=== PATIENT | female | born 1990 | race Caucasian/White ===

== ENCOUNTER 2016-12-12 18:23 | Emergency (ER) | payer OTHER ==
--- NOTE | 2016-12-12 20:32 | EDDOCDS ---
Physician Documentation [facility] Name: Neil Shultz Age: 26 yrs Sex: Female : 1990 Arrival Date: 12/12/2016 Time: 18:23 Bed TR1 Private MD: NO PRIMARY PHYSICIAN, . Disposition: 12/12/16 20:18 Discharged to Home/Self Care. Impression: Sprain of interphalangeal joint of left index finger. - Condition is Stable. - Discharge Instructions: Finger Sprain, Jammed Finger. - Medication Reconciliation, Local Pharmacy Hours form. - Follow up: Rashid Spear; When: Call to arrange an appointment; Reason: Recheck today's complaints, Continuance of care. - Problem is new. - Symptoms are unchanged. Historical: - Allergies: No known drug Allergies; - Home Meds: 1. amoxicillin 500 mg Oral cap 1 cap every 12 hours (Last dose: 12/11/2016) - PMHx: none; - PSHx: none; - Social history: Smoking status: Patient states former smoker of tobacco. No barriers to communication noted, The patient speaks fluent Zambian, Speaks appropriately for age. - Family history: Not pertinent. - : The pt / caregiver states he / she is not on anticoagulants. Home medication list is obtained from the patient. - Exposure Risk Screening:: None identified. 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 5 in. (165.10 cm) (R); Pain 5/10; 20:29 BP 131 / 79; Pulse 71; Resp 16; Temp 98.2(O); Pulse Ox 99% on R/A; jo3 18:25 Body Mass Index 32.12 (87.54 kg, 165.10 cm) gr2 MDM: 18:41 Fingers Ordered. EDMS 19:51 [facility] Payment Agreement was scanned into [employer] and attached to record. gb 20:07 Financial registration complete. [email or web address] Signatures: Dispatcher [employer] EDMS Ayla Ho, Reg Reg gb Charlene Russell,RN RN lottie3 Mariano Grey PA PA Aruna Hedrick, Reg Reg ks16 The chart was reviewed and I authenticate all verbal orders and agree with the evaluation and treatment provided.Attachments: 19:51 [facility] Payment Agreement gb MTDD
--- NOTE | 2016-12-12 20:32 | EDDOCDS ---
Nurse's Notes [facility] Name: Neil Shultz Age: 26 yrs Sex: Female : 1990 Arrival Date: 12/12/2016 Time: 18:23 Bed TR1 Private MD: NO PRIMARY PHYSICIAN, . Diagnosis: Sprain of interphalangeal joint of left index finger Presentation: 12/12 18:35 Presenting complaint: Patient states: Fell last night, injuring left index finger. jo3 Swelling noted. Adult Sepsis Screening: The patient does not have new or worsening altered mentation. Patient's respiratory rate is less than 22. Systolic blood pressure is greater than 100. Patient has a qSOFA score of 0- Negative Sepsis Screen. Suicide/Homicide risk assessment- the patient denies having any suicidal and/or homicidal ideations and does not present with any other emotional, behavioral or mental health complaints. Status: Patient is not a service now developer or dependent. Transition of care: patient was not received from another setting of care. 18:35 Acuity: GELY Level 4 jo3 18:35 Method Of Arrival: Walkin/Carried/Asstd jo3 Triage Assessment: 18:36 General: Appears in no apparent distress, Behavior is appropriate for age, cooperative. jo3 Pain: Pain currently is 4 out of 10 on a pain scale. HIV screening NA for this visit Offered previously. Neurological: No deficits noted. Respiratory: No deficits noted. Airway is patent Respiratory effort is even, unlabored, Parent/caregiver reports the patient having. Derm: Skin is pink, warm & dry. swelling to left index finger. 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 amoxicillin 500 mg Oral cap 1 cap every 12 hours (Last dose: 12/11/2016) - PMHx: none; - PSHx: none; - Social history: Smoking status: Patient states former smoker of tobacco. No barriers to communication noted, The patient speaks fluent Moroccan, Speaks appropriately for age. - Family history: Not pertinent. - : The pt / caregiver states he / she is not on anticoagulants. Home medication list is obtained from the patient. - Exposure Risk Screening:: None identified. Screenin:29 Screening information is obtained from the patient. Fall risk: No risks identified. jo3 Assistance ADL's: requires no assistance with activities of daily living. Abuse/DV Screen: The patient / caregiver reports he/she is: not in a situation that causes fear, pain or injury. Nutritional screening: No deficits noted. Advance Directives: Currently, there is no health care proxy. There is no active DNR order. home support is adequate. Assessment: 20:29 General: Appears in no apparent distress, comfortable, Behavior is appropriate for age, jo3 cooperative. Neurological: No deficits noted. Level of Consciousness is awake, alert, Oriented to person, place, time. Respiratory: Airway is patent Respiratory effort is even, unlabored. Vital Signs: 18:25 BP 132 / 74; Pulse 99; Resp 18 S; Temp 97.8(O); Pulse Ox 96% on R/A; Weight 87.54 kg gr2 (R); Height 5 ft. 5 in. (165.10 cm) (R); Pain 5/10; 20:29 BP 131 / 79; Pulse 71; Resp 16; Temp 98.2(O); Pulse Ox 99% on R/A; jo3 18:25 Body Mass Index 32.12 (87.54 kg, 165.10 cm) gr2 Vitals: 18:25 Log In Time: December 12, 2016 at 18:25. gr2 ED Course: 18:25 Patient visited by Dorcas Washington. gr2 18:25 NO PRIMARY PHYSICIAN, . is Private Physician. gr2 18:25 Patient moved to Waiting gr2 18:29 Patient visited by Dorcas Washington. gr2 18:29 Patient moved to Pre RCE gr2 18:36 Triage Initiated jo3 18:38 Patient visited by Charlene Russell RN. jo3 19:36 Patient moved to Triage 2 jo3 19:47 Mariano Grey PA is PHCP. mo1 19:47 Murali Castaneda DO is Attending Physician. mo1 19:51 [facility] Payment Agreement was scanned into [employer] and attached to record. gb 20:06 Patient visited by Mariano Grey PA. mo1 20:18 Rashid Spear is Referral Physician. mo1 20:29 The patient / caregiver is instructed regarding the plan of care and ED course. jo3 20:29 No IV's were initiated during this patient's visit. No procedures done that require jo3 assistance. 20:30 Patient moved to TR1 jf3 Order Results: There are currently no results for this order. Outcome: 20:18 Discharge ordered by Provider. mo1 20:29 Discharge Assessment: Patient awake, alert and oriented x 3. No cognitive and/or jo3 functional deficits noted. Patient verbalized understanding of disposition instructions. patient administered narcotics - no. The following High Risk Discharge criteria are identified: None. Discharged to home ambulatory. Condition: stable. Discharge instructions given to patient, Instructed on discharge instructions, follow up and referral plans. Demonstrated understanding of instructions, Pt was receptive of discharge instructions/ teaching. No special radiology studies were completed. Property sent home with patient. 20:31 Patient left the ED. jo3 Signatures: Ayla Ho, Reg Reg Charlene Peterson,RN RN jo3 Dorcas Washington gr2 Mariano Grey PA PA mo1 Aniceto Putnam,RN RN jf3 MTDD
--- NOTE | 2016-12-13 01:13 | REP ---
Clinical: Trauma. Technique: AP, lateral, bilateral oblique views left second digit . Findings: The osseous structures and joint spaces are intact and normal. There is no evidence for acute fracture or dislocation. Surrounding soft tissues are unremarkable. No subcutaneous emphysema or radiodense foreign body. Impression: Normal examination. No acute fracture or dislocation. Signed by Richard Upton MD 12/13/2016 01:05 A
--- NOTE | 2016-12-14 21:33 | EDDOCDS ---
Physician Documentation [facility] Name: Neil Shultz Age: 26 yrs Sex: Female : 1990 Arrival Date: 12/12/2016 Time: 18:23 Bed TR1 Private MD: NO PRIMARY PHYSICIAN, . Disposition: 12/12/16 20:18 Discharged to Home/Self Care. Impression: Sprain of interphalangeal joint of left index finger. - Condition is Stable. - Discharge Instructions: Finger Sprain, Jammed Finger. - Medication Reconciliation, Local Pharmacy Hours form. - Follow up: Rashid Spear; When: Call to arrange an appointment; Reason: Recheck today's complaints, Continuance of care. - Problem is new. - Symptoms are unchanged. Historical: - Allergies: No known drug Allergies; - Home Meds: 1. amoxicillin 500 mg Oral cap 1 cap every 12 hours (Last dose: 12/11/2016) - PMHx: none; - PSHx: none; - Social history: Smoking status: Patient states former smoker of tobacco. No barriers to communication noted, The patient speaks fluent Cymro, Speaks appropriately for age. - Family history: Not pertinent. - : The pt / caregiver states he / she is not on anticoagulants. Home medication list is obtained from the patient. - Exposure Risk Screening:: None identified. 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 5 in. (165.10 cm) (R); Pain 5/10; 20:29 BP 131 / 79; Pulse 71; Resp 16; Temp 98.2(O); Pulse Ox 99% on R/A; jo3 18:25 Body Mass Index 32.12 (87.54 kg, 165.10 cm) gr2 MDM: 18:41 Fingers Ordered. EDMS 19:51 [facility] Payment Agreement was scanned into [employer] and attached to record. gb 20:07 Financial registration complete. ks16 22:26 T-Sheet-- Draft Copy was scanned into [employer] and attached to record. klr Signatures: Dispatcher [employer] Ayla Parks, Reg Reg gb Charlene Russell RN RN lottie3 Mariano Grey, Aruna Linares, Reg Reg ks16 Ekta Moreira klr The chart was reviewed and I authenticate all verbal orders and agree with the evaluation and treatment provided.Attachments: 19:51 [facility] Payment Agreement gb 22:26 T-Sheet-- Draft Copy klr Chart Complete MTDD
--- NOTE | 2016-12-14 21:33 | EDDOCDS ---
Nurse's Notes [facility] Name: Neil Shultz Age: 26 yrs Sex: Female : 1990 Arrival Date: 12/12/2016 Time: 18:23 Bed TR1 Private MD: NO PRIMARY PHYSICIAN, . Diagnosis: Sprain of interphalangeal joint of left index finger Presentation: 12/12 18:35 Presenting complaint: Patient states: Fell last night, injuring left index finger. jo3 Swelling noted. Adult Sepsis Screening: The patient does not have new or worsening altered mentation. Patient's respiratory rate is less than 22. Systolic blood pressure is greater than 100. Patient has a qSOFA score of 0- Negative Sepsis Screen. Suicide/Homicide risk assessment- the patient denies having any suicidal and/or homicidal ideations and does not present with any other emotional, behavioral or mental health complaints. Status: Patient is not a technical service representative or dependent. Transition of care: patient was not received from another setting of care. 18:35 Acuity: GELY Level 4 jo3 18:35 Method Of Arrival: Walkin/Carried/Asstd jo3 Triage Assessment: 18:36 General: Appears in no apparent distress, Behavior is appropriate for age, cooperative. jo3 Pain: Pain currently is 4 out of 10 on a pain scale. HIV screening NA for this visit Offered previously. Neurological: No deficits noted. Respiratory: No deficits noted. Airway is patent Respiratory effort is even, unlabored, Parent/caregiver reports the patient having. Derm: Skin is pink, warm & dry. swelling to left index finger. 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 amoxicillin 500 mg Oral cap 1 cap every 12 hours (Last dose: 12/11/2016) - PMHx: none; - PSHx: none; - Social history: Smoking status: Patient states former smoker of tobacco. No barriers to communication noted, The patient speaks fluent Romanian, Speaks appropriately for age. - Family history: Not pertinent. - : The pt / caregiver states he / she is not on anticoagulants. Home medication list is obtained from the patient. - Exposure Risk Screening:: None identified. Screenin:29 Screening information is obtained from the patient. Fall risk: No risks identified. jo3 Assistance ADL's: requires no assistance with activities of daily living. Abuse/DV Screen: The patient / caregiver reports he/she is: not in a situation that causes fear, pain or injury. Nutritional screening: No deficits noted. Advance Directives: Currently, there is no health care proxy. There is no active DNR order. home support is adequate. Assessment: 20:29 General: Appears in no apparent distress, comfortable, Behavior is appropriate for age, jo3 cooperative. Neurological: No deficits noted. Level of Consciousness is awake, alert, Oriented to person, place, time. Respiratory: Airway is patent Respiratory effort is even, unlabored. Vital Signs: 18:25 BP 132 / 74; Pulse 99; Resp 18 S; Temp 97.8(O); Pulse Ox 96% on R/A; Weight 87.54 kg gr2 (R); Height 5 ft. 5 in. (165.10 cm) (R); Pain 5/10; 20:29 BP 131 / 79; Pulse 71; Resp 16; Temp 98.2(O); Pulse Ox 99% on R/A; jo3 18:25 Body Mass Index 32.12 (87.54 kg, 165.10 cm) gr2 Vitals: 18:25 Log In Time: December 12, 2016 at 18:25. gr2 ED Course: 18:25 Patient visited by Dorcas Washington. gr2 18:25 NO PRIMARY PHYSICIAN, . is Private Physician. gr2 18:25 Patient moved to Waiting gr2 18:29 Patient visited by Dorcas Washington. gr2 18:29 Patient moved to Pre RCE gr2 18:36 Triage Initiated jo3 18:38 Patient visited by Charlene Russell RN. jo3 19:36 Patient moved to Triage 2 jo3 19:47 Mariano Grey PA is PHCP. mo1 19:47 Murali Castaneda DO is Attending Physician. mo1 19:51 [facility] Payment Agreement was scanned into [employer] and attached to record. gb 20:06 Patient visited by Mariano Grey PA. mo1 20:18 Rashid Spear is Referral Physician. mo1 20:29 The patient / caregiver is instructed regarding the plan of care and ED course. jo3 20:29 No IV's were initiated during this patient's visit. No procedures done that require jo3 assistance. 20:30 Patient moved to TR1 3 22:26 T-Sheet-- Draft Copy was scanned into [employer] and attached to record. klr 12/13 01:19 Fingers Returned. EDMS Order Results: Radiology Order: Fingers Test: Fingers REASON FOR EXAMINATION: Trauma; Clinical: Trauma.; ; Technique: AP, lateral, bilateral oblique views left second digit .; ; Findings: The osseous structures and joint spaces are intact and normal. There; is no evidence for acute fracture or dislocation. Surrounding soft tissues are; unremarkable. No subcutaneous emphysema or radiodense foreign body.; ; Impression:; Normal examination. No acute fracture or dislocation.; ; ; Signed by; Richard Upton MD 12/13/2016 01:05 A; Outcome: 12/12 20:18 Discharge ordered by Provider. mo1 20:29 Discharge Assessment: Patient awake, alert and oriented x 3. No cognitive and/or jo3 functional deficits noted. Patient verbalized understanding of disposition instructions. patient administered narcotics - no. The following High Risk Discharge criteria are identified: None. Discharged to home ambulatory. Condition: stable. Discharge instructions given to patient, Instructed on discharge instructions, follow up and referral plans. Demonstrated understanding of instructions, Pt was receptive of discharge instructions/ teaching. No special radiology studies were completed. Property sent home with patient. 20:31 Patient left the ED. jo3 Signatures: Dispatcher [employer] EDIA Ayla Ho Reg Reg gb Helmerci, Jennifer, RN RN jo3 Dorcas Washington 2 Mariano Grey PA PA mo1 Aniceto Putnam,VALERIE RN jf3 Ekta Moreira klr Chart Complete MTDD
--- NOTE | 2016-12-14 21:33 | EDDOCDS ---
Physician Documentation [facility] Name: Neil Shultz Age: 26 yrs Sex: Female : 1990 Arrival Date: 12/12/2016 Time: 18:23 Bed TR1 Private MD: NO PRIMARY PHYSICIAN, . Disposition: 12/12/16 20:18 Discharged to Home/Self Care. Impression: Sprain of interphalangeal joint of left index finger. - Condition is Stable. - Discharge Instructions: Finger Sprain, Jammed Finger. - Medication Reconciliation, Local Pharmacy Hours form. - Follow up: Rashid Spear; When: Call to arrange an appointment; Reason: Recheck today's complaints, Continuance of care. - Problem is new. - Symptoms are unchanged. Historical: - Allergies: No known drug Allergies; - Home Meds: 1. amoxicillin 500 mg Oral cap 1 cap every 12 hours (Last dose: 12/11/2016) - PMHx: none; - PSHx: none; - Social history: Smoking status: Patient states former smoker of tobacco. No barriers to communication noted, The patient speaks fluent Kosovan, Speaks appropriately for age. - Family history: Not pertinent. - : The pt / caregiver states he / she is not on anticoagulants. Home medication list is obtained from the patient. - Exposure Risk Screening:: None identified. 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 5 in. (165.10 cm) (R); Pain 5/10; 20:29 BP 131 / 79; Pulse 71; Resp 16; Temp 98.2(O); Pulse Ox 99% on R/A; jo3 18:25 Body Mass Index 32.12 (87.54 kg, 165.10 cm) gr2 MDM: 18:41 Fingers Ordered. EDMS 19:51 [facility] Payment Agreement was scanned into [employer] and attached to record. gb 20:07 Financial registration complete. ks16 22:26 T-Sheet-- Draft Copy was scanned into [employer] and attached to record. klr Signatures: Dispatcher [employer] Ayla Parks, Reg Reg gb Charlene Russell RN RN lottie3 Mariano Grey, Aruna Linares, Reg Reg ks16 Ekta Moreira klr The chart was reviewed and I authenticate all verbal orders and agree with the evaluation and treatment provided.Attachments: 19:51 [facility] Payment Agreement gb 22:26 T-Sheet-- Draft Copy klr Chart Complete MTDD
== END 2016-12-12 20:31 | disposition home or self-care (01) ==
LOC: M ED 18:23
DX: S63.631A Sprain of interphalangeal joint of left index finger, initial encounter (principal); Z87.891 Personal history of nicotine dependence; W01.198A Fall on same level from slipping, tripping and stumbling with subsequent striking against other object, initial encounter; Y92.89 Other specified places as the place of occurrence of the external cause; Y93.89 Activity, other specified; Y99.9 Unspecified external cause status

== ENCOUNTER → 2017-01-12 | Outpatient (CLI) | payer OTHER ==
--- NOTE | 2017-01-12 12:44 | REP ---
Clinical: thoracic pain. Technique: AP, lateral, and swimmers views. Findings: Alignment and kyphosis is maintained. Vertebral bodies intact. No acute fracture / compression injury or subluxation. No degenerative changes. Paravertebral soft tissues are normal. Impression: Normal thoracic spine series. Signed by Richard Upton MD 01/12/2017 12:35 P
--- NOTE | 2017-01-12 12:44 | REP ---
Clinical: Pain. Comparison: 12/09/2010 . Technique: AP, lateral, bilateral oblique, and coned-down views. Findings: Alignment and lordosis is maintained. The vertebral bodies including transverse process and spinous processes are intact and normal. There is no evidence for acute fracture / compression injury or subluxation. No evidence for spondylolysis or spondylolisthesis. No significant degenerative change is noted. Impression: Normal lumbosacral spine radiograph series. Signed by Richard Upton MD 01/12/2017 12:36 P
--- NOTE | 2017-01-12 12:46 | REP ---
Clinical: Pain Technique: AP, lateral, bilateral oblique and sunrise views right and left knee. Findings: The osseous structures and joint spaces are intact and normal. There is no evidence for acute fracture or dislocation. No joint effusion is appreciated. Surrounding soft tissues are unremarkable. No subcutaneous emphysema or radiodense foreign body. Impression: Normal examination. No acute fracture or dislocation. Signed by Richard Upton MD 01/12/2017 12:37 P
[2017-01-12 17:23] LABS: ALBUMIN 4.2 GM/DL (3.2-5.2); ALBUMIN/GLOBULIN RATIO 1.35 (1.00-1.93); ALKALINE PHOSPHATASE 71 U/L (45-117); ALT/SGPT 14 U/L (12-78); ANION GAP 9 MEQ/L (8-16); AST/SGOT 13 U/L (15-37); BLOOD UREA NITROGEN 14 MG/DL (7-18); CALCIUM LEVEL 8.9 MG/DL (8.5-10.1); CARBON DIOXIDE LEVEL 26 MEQ/L (21-32); CHLORIDE LEVEL 106 MEQ/L (98-107); CHOLESTEROL LEVEL 156 MG/DL (<200); CREATININE FOR GFR 0.68 MG/DL (0.55-1.02); GLOMERULAR FILTRATION RATE > 60.0 (>60); GLUCOSE, FASTING 80 MG/DL (70-105); POTASSIUM SERUM 3.9 MEQ/L (3.5-5.1); SODIUM LEVEL 141 MEQ/L (136-145); TOTAL PROTEIN 7.3 GM/DL (6.4-8.2); TRIGLYCERIDES LEVEL 36 MG/DL (<150)
== END ==
LOC: M WUC 11:02
PROVIDERS: ATTEND Nurse Practitioner Family
DX: F41.8 Other specified anxiety disorders (principal); M25.569 Pain in unspecified knee; M54.5 Low back pain

== ENCOUNTER → 2017-02-16 | Outpatient (REF) | payer OTHER ==
[2017-02-16 14:15] LABS: TOTAL PROTEIN 7.2 GM/DL (6.4-8.2)
[2017-02-16 14:24] LABS: VITAMIN B12 LEVEL 446 PG/ML (247-911)
[2017-02-16 14:25] LABS: FOLATE 19.2 NG/ML (>5.4)
[2017-02-17 10:16] LABS: ALBUMIN 4.24 GM/DL (3.29-5.55); ALBUMIN % 58.9 % (55.8-66.1); GAMMA GLOBULIN % 14.5 % (11.1-18.8)
[2017-02-19 00:06] LABS: SJOGREN'S ANTI SS-A 0.2 AI (0.0-0.9); SJOGREN'S ANTI SS-B <0.2 AI (0.0-0.9)
== END ==
LOC: M LABNEURO 13:16
PROVIDERS: ATTEND Psychiatry & Neurology Neurology
DX: G58.9 Mononeuropathy, unspecified (principal); M12.89 Other specific arthropathies, not elsewhere classified, multiple sites

== ENCOUNTER 2017-06-11 11:46 | Emergency (ER) | payer OTHER ==
[~2017-06-11] VITALS: Ht 167.6 cm; Wt 82.4 kg
[2017-06-11] MEDS ORDERED: PYRI1TAB5 PO (13:12)
[2017-06-11] MEDS ORDERED: MACR100C43 PO (13:12)
[2017-06-11 13:24] VITALS: BP 105/57
== END 2017-06-11 13:26 | disposition home or self-care (01) ==
LOC: M ED 11:46
DX: N39.0 Urinary tract infection, site not specified (principal); R31.9 Hematuria, unspecified

== ENCOUNTER → 2017-07-18 | Outpatient (REF) | payer OTHER ==
[~2017-07-18] MED LIST: MACR100C43 PO; PYRI1TAB5 PO
[2017-07-18 19:02] LABS: ALBUMIN 3.7 GM/DL (3.2-5.2); ALBUMIN/GLOBULIN RATIO 1.19 (1.00-1.93); ALKALINE PHOSPHATASE 61 U/L (45-117); ALT/SGPT 20 U/L (12-78); ANION GAP 10 MEQ/L (8-16); AST/SGOT 15 U/L (15-37); BILIRUBIN,TOTAL 0.6 MG/DL (0.2-1.0); BLOOD UREA NITROGEN 16 MG/DL (7-18); CALCIUM LEVEL 8.7 MG/DL (8.5-10.1); CARBON DIOXIDE LEVEL 25 MEQ/L (21-32); CHLORIDE LEVEL 108 MEQ/L (98-107); CREATININE FOR GFR 0.64 MG/DL (0.55-1.02); GLOMERULAR FILTRATION RATE > 60.0 (>60); GLUCOSE, FASTING 94 MG/DL (70-105); HCG, SERUM QUANTITATIVE < 1.0 MIU/ML; POTASSIUM SERUM 4.2 MEQ/L (3.5-5.1); SODIUM LEVEL 143 MEQ/L (136-145); TOTAL PROTEIN 6.8 GM/DL (6.4-8.2)
[2017-07-18 19:43] LABS: BASO % 0.5 % (0.0-1.0); EOS # 0.2 K/mm3 (0.0-0.50); EOS % 2.1 % (0.0-3.0); LARGE UNSTAINED CELL # 0.1 K/mm3 (0.0-0.4); LARGE UNSTAINED CELL % 1.4 % (0.0-4.0); LYMPH # 1.9 K/mm3 (1.5-6.5); MEAN CORPUSCULAR HEMOGLOBIN 30.2 pg (27.0-33.0); MEAN CORPUSCULAR HGB CONC 32.5 g/dl (32.0-36.5); MEAN CORPUSCULAR VOLUME 92.9 fl (80.0-96.0); MONO # 0.5 K/mm3 (0.0-0.8); MONO % 6.5 % (0.0-5.0); NEUTROPHILS # 4.7 K/mm3 (1.8-7.7); NEUTROPHILS % 64.5 % (36.0-66.0); PLATELET COUNT, AUTOMATED 263 k/mm3 (150-450); RED CELL DISTRIBUTION WIDTH 12.3 % (11.5-14.5); WHITE BLOOD COUNT 7.2 K/mm3 (4.0-10.0)
[2017-07-18 20:37] LABS: ERYTHROCYTE SEDIMENTATION RATE 6 mm/hr (0-20)
[2017-07-21 00:06] LABS: Lyme Disease IgG/IgM Antibodie <0.91 ISR (0.00-0.90); Lyme Disease IgM Ab Quantitati <0.80 index (0.00-0.79)
== END ==
LOC: M LABDRAW1 16:53
PROVIDERS: ATTEND Internal Medicine Rheumatology
DX: M45.0 Ankylosing spondylitis of multiple sites in spine (principal); Z79.899 Other long term (current) drug therapy; O02.81 Inappropriate change in quantitative human chorionic gonadotropin (hCG) in early pregnancy

== ENCOUNTER 2018-07-04 18:04 | Emergency (ER) | payer OTHER ==
[2018-07-04 20:36] LABS: CONTROL LINE UCG INT CTR LINE PRESENT; URINE PREG TEST NEGATIVE (NEGATIVE)
[2018-07-04] MEDS ORDERED: LIDOCAINE 1% MDV 20ML VIAL As Ordered (20:41)
[2018-07-04] MEDS: AZITHROMYCIN 250 MG TAB PO (20:46)
[2018-07-04] MEDS: cefTRIAXone SOD 250 MG VIAL (J0696) IM (20:46)
[2018-07-04 21:03] LABS: KETONE, URINE AUTO RFX NEGATIVE (NEGATIVE); LEUKOCYTE ESTERASE UR AUTO RFX TRACE (NEGATIVE); MUCUS, URINE RFX SMALL (NEGATIVE); NITRITE, URINE AUTO RFX NEGATIVE (NEGATIVE); RBC, URINE AUTO RFX 2 /HPF (0-3); SPECIFIC GRAVITY UR AUTO RFX 1.006 (1.002-1.035); SQUAM EPITHELIAL CELL UR AURFX 1 /HPF (0-6); WBC, URINE AUTO RFX 2 /HPF (0-3)
[2018-07-04 22:03] LABS: CHLAMYDIA DNA AMPLIFICATION NEGATIVE (NEGATIVE); GC DNA AMPLIFICATION NEGATIVE (NEGATIVE)
== END 2018-07-04 21:27 | disposition home or self-care (01) ==
LOC: M ED 18:04
DX: Z20.2 Contact with and (suspected) exposure to infections with a predominantly sexual mode of transmission (principal); N89.8 Other specified noninflammatory disorders of vagina; Z79.3 Long term (current) use of hormonal contraceptives; F17.210 Nicotine dependence, cigarettes, uncomplicated
CPT/HCPCS: J0696

== ENCOUNTER 2020-01-26 16:01 | Emergency (ER) | payer OTHER, SELFPAY ==
[~2020-01-26] VITALS: Ht 167.6 cm; Wt 88.2 kg
[2020-01-26 17:14] LABS: INFLUENZA A AMPLIFICATION NEGATIVE (NEGATIVE); INFLUENZA B AMPLIFICATION POSITIVE (NEGATIVE)
[2020-01-26] MEDS ORDERED: IBUPROFEN 600 MG TAB PO ONE (17:30)
[2020-01-26] MEDS ORDERED: ACETAMINOPHEN 500 MG TAB PO ONE (17:30)
[2020-01-26 17:31] VITALS: BP 118/78
== END 2020-01-26 17:35 | disposition home or self-care (01) ==
LOC: M ED 16:01
DX: J10.89 Influenza due to other identified influenza virus with other manifestations (principal); F17.210 Nicotine dependence, cigarettes, uncomplicated

== ENCOUNTER → 2020-09-19 | Outpatient (REF) | payer OTHER | LOC: M LAB REF 15:45 | PROVIDERS: ATTEND Nurse Practitioner Family | DX: R30.0 Dysuria (principal) ==

== ENCOUNTER 2020-10-19 16:29 | Emergency (ER) | payer OTHER ==
[~2020-10-19] VITALS: Ht 165.1 cm; Wt 96.0 kg
[2020-10-19] MEDS ORDERED: FLAG500T PO (18:11)
[2020-10-19 18:15] VITALS: BP 125/69
[2020-10-19] MEDS ORDERED: metroNIDAZOLE (FLAGYL) 500MG TABLET PO ONE (18:15)
[2020-10-19 18:26] LABS: CHLAMYDIA DNA AMPLIFICATION NEGATIVE (NEGATIVE); GC DNA AMPLIFICATION NEGATIVE (NEGATIVE)
[2020-10-19 19:12] LABS: CHLAMYDIA DNA AMPLIFICATION NEGATIVE (NEGATIVE); GC DNA AMPLIFICATION NEGATIVE (NEGATIVE)
== END 2020-10-19 18:17 | disposition home or self-care (01) ==
LOC: M ED 16:29
DX: N76.0 Acute vaginitis (principal); F17.210 Nicotine dependence, cigarettes, uncomplicated

== ENCOUNTER 2021-02-09 07:51 | Emergency (ER) | payer OTHER ==
[~2021-02-09] VITALS: Ht 165.1 cm; Wt 91.9 kg
[~2021-02-09 07:51] MED LIST changes: +FLAG500T PO
[2021-02-09] MEDS ORDERED: ISIB1TAB (08:00)
[2021-02-09 08:49] LABS: HEMATOCRIT 48.8 % (36.0-47.0); HEMOGLOBIN 16.1 g/dl (12.0-15.5); MEAN CORPUSCULAR HEMOGLOBIN 30.1 pg (27.0-33.0); MEAN CORPUSCULAR VOLUME 91.4 fl (80.0-96.0); PLATELET COUNT, AUTOMATED 244 10^3/uL (150-450); RED BLOOD COUNT 5.34 10^6/uL (4.00-5.40); WHITE BLOOD COUNT 5.1 10^3/uL (4.0-10.0)
[2021-02-09 09:13] LABS: ATYPICAL LYMPH 3 % (0-5); BASOPHILS 1 % (0-1); EOSINOPHILS 2 % (0-3); LYMPHOCYTES 21 % (16-44); MONOCYTES 13 % (0-5); NEUTROPHILS 60 % (28-66); PLATELET ESTIMATE NORMAL (NORMAL)
[2021-02-09 09:19] LABS: ALBUMIN 3.9 GM/DL (3.2-5.2); ALT/SGPT 107 U/L (12-78); BILIRUBIN,DIRECT 0.1 MG/DL (0.0-0.2); BILIRUBIN,TOTAL 0.3 MG/DL (0.2-1.0); BLOOD UREA NITROGEN 13 MG/DL (7-18); CARBON DIOXIDE LEVEL 28 MEQ/L (21-32); CHLORIDE LEVEL 109 MEQ/L (98-107); CREATININE FOR GFR 0.71 MG/DL (0.55-1.30); GLOMERULAR FILTRATION RATE > 60.0 (>60); GLUCOSE, FASTING 88 MG/DL (70-100); LIPASE 63 U/L (73-393); POTASSIUM SERUM 4.4 MEQ/L (3.5-5.1); SODIUM LEVEL 139 MEQ/L (136-145); TOTAL PROTEIN 7.7 GM/DL (6.4-8.2)
[2021-02-09 09:20] LABS: HCG, SERUM QUALITATIVE NEGATIVE (NEGATIVE)
[2021-02-09] MEDS ORDERED: NS 1,000 ML IV ONE (09:20)
[2021-02-09] MEDS ORDERED: VANC125C3 PO (10:25)
[2021-02-09 11:12] VITALS: BP 129/66
== END 2021-02-09 11:17 | disposition home or self-care (01) ==
LOC: M ED 07:51
DX: R19.7 Diarrhea, unspecified (principal); B96.89 Other specified bacterial agents as the cause of diseases classified elsewhere; F17.210 Nicotine dependence, cigarettes, uncomplicated; Z79.3 Long term (current) use of hormonal contraceptives

== ENCOUNTER 2021-12-02 17:34 | Emergency (ER) | payer OTHER ==
[~2021-12-02] VITALS: Ht 165.1 cm; Wt 90.9 kg
[~2021-12-02 17:34] MED LIST changes: +ISIB1TAB; +VANC125C3 PO
[2021-12-02] MEDS ORDERED: AUGM875T28 PO (21:44)
[2021-12-02 21:55] VITALS: BP 130/90
== END 2021-12-02 21:56 | disposition home or self-care (01) ==
LOC: M ED 17:34
DX: L03.113 Cellulitis of right upper limb (principal); Z79.3 Long term (current) use of hormonal contraceptives; F17.210 Nicotine dependence, cigarettes, uncomplicated

== ENCOUNTER → 2021-12-28 | Outpatient (CLI) | payer OTHER ==
[~2021-12-28] MED LIST changes: +AUGM875T28 PO
== END ==
LOC: M LABSMTC 11:58
PROVIDERS: ATTEND Anesthesiology
DX: Z01.818 Encounter for other preprocedural examination (principal); Z11.52 Encounter for screening for COVID-19

== ENCOUNTER → 2021-12-28 | Outpatient (CLI) | payer OTHER ==
[2021-12-28 16:37] LABS: BASO # 0.1 10^3/uL (0.0-0.2); BASO % 0.5 % (0.0-1.0); EOS # 0.2 10^3/uL (0.0-0.5); EOS % 1.6 % (0.0-3.0); HEMATOCRIT 42.1 % (36.0-47.0); LYMPH # 2.5 10^3/uL (1.5-5.0); LYMPH % 27.2 % (24.0-44.0); MEAN CORPUSCULAR HEMOGLOBIN 29.7 pg (27.0-33.0); MEAN CORPUSCULAR HGB CONC 33.3 g/dl (32.0-36.5); MEAN CORPUSCULAR VOLUME 89.2 fl (80.0-96.0); MONO # 0.8 10^3/uL (0.0-0.8); MONO % 8.4 % (2.0-8.0); NEUTROPHILS # 5.8 10^3/uL (1.5-8.5); NEUTROPHILS % 62.1 % (36.0-66.0); PLATELET COUNT, AUTOMATED 222 10^3/uL (150-450); RED BLOOD COUNT 4.72 10^6/uL (4.00-5.40); WHITE BLOOD COUNT 9.3 10^3/uL (4.0-10.0)
[2021-12-28 17:02] LABS: BLOOD UREA NITROGEN 8 MG/DL (7-18); CARBON DIOXIDE LEVEL 28 MEQ/L (21-32); CHLORIDE LEVEL 107 MEQ/L (98-107); CREATININE FOR GFR 0.61 MG/DL (0.55-1.30); GLOMERULAR FILTRATION RATE > 60.0 (>60); GLUCOSE, FASTING 116 MG/DL (70-100); POTASSIUM SERUM 4.1 MEQ/L (3.5-5.1); SODIUM LEVEL 141 MEQ/L (136-145)
[2021-12-28 17:14] LABS: HCG, SERUM QUALITATIVE NEGATIVE (NEGATIVE)
== END ==
LOC: M LAB 12-24 16:32
PROVIDERS: ATTEND Podiatrist
DX: Z01.812 Encounter for preprocedural laboratory examination (principal)

== ENCOUNTER 2022-01-01 07:17 | Day surgery (SDC) | payer OTHER ==
[~2022-01-01] VITALS: Ht 165.1 cm; Wt 94.8 kg
[~2022-01-01 07:17] MED LIST changes: +BUPIVACAINE HCL 0.5% 30 ML VIAL As Ordered ONE; +GENTAMICIN SULF 80MG/2ML VIAL As Ordered ONE; +LIDOCAINE 1% MDV 20ML VIAL SQ PRN; +LIDOCAINE 2% MDV 20ML VIAL As Ordered ONE; +LR 1,000 ML IV ONE; +NEOSPORIN GU IRRIG 20 ML VIAL As Ordered ONE; +ceFAZolin SOD 2 GM in IV 1 EA IV ONE; +dexameTHASONE 4 MG/ML 1ML VIAL (J1100 PER 1MG) As Ordered ONE
[2022-01-01] MEDS ORDERED: LIDOCAINE 2% 100MG/5ML SDV (FOR ANES.) As Ordered ONE (08:14)
[2022-01-01] MEDS ORDERED: ONDANSETRON 4MG/2ML VIAL As Ordered ONE (08:14)
[2022-01-01] MEDS ORDERED: propofoL 500 MG/50 ML VIAL As Ordered ONE (08:15)
[2022-01-01] MEDS ORDERED: KETOROLAC 60MG 2ML VIAL As Ordered ONE (08:15)
[2022-01-01] MEDS ORDERED: fentaNYL 100 MCG/2 ML INJECTION As Ordered ONE (08:15)
[2022-01-01] MEDS ORDERED: MIDAZOLAM INJ 2MG/2ML VIAL (J2250 PER 1MG) As Ordered ONE (08:15)
[2022-01-01] MEDS ORDERED: dexameTHASONE 4 MG/ML 1ML VIAL (J1100 PER 1MG) As Ordered ONE (08:15)
[2022-01-01 08:32] LABS: HCG, SERUM QUALITATIVE NEGATIVE (NEGATIVE)
[2022-01-01] MEDS ORDERED: propofoL 200 MG/20 ML VIAL As Ordered ONE (10:14)
[2022-01-01] MEDS ORDERED: fentaNYL 100 MCG/2 ML INJECTION IV PRN (11:15)
[2022-01-01] MEDS ORDERED: LR 1,000 ML IV SCH (11:15)
[2022-01-01] MEDS ORDERED: PERCOCET 5MG/325MG TAB PO PRN (11:15)
[2022-01-01] MEDS ORDERED: METOCLOPRAMIDE INJ 10MG/2ML VIAL (J2765 PER 1) IV PRN (11:15)
[2022-01-01] MEDS ORDERED: ONDANSETRON 4MG/2ML VIAL IV PRN (11:15)
[2022-01-01] MEDS ORDERED: LABETALOL 100MG/20ML VIAL As Ordered ONE (11:25)
[2022-01-01 11:40] VITALS: BP 116/57
== END 2022-01-01 12:00 | disposition home or self-care (01) ==
LOC: M SDC 07:17
PROVIDERS: ATTEND Podiatrist
DX: M21.621 Bunionette of right foot (principal); M79.671 Pain in right foot; F41.9 Anxiety disorder, unspecified; M54.50 Low back pain, unspecified; E55.9 Vitamin D deficiency, unspecified; F17.218 Nicotine dependence, cigarettes, with other nicotine-induced disorders
CPT/HCPCS: 28113; 36415; 73630; 84703; 88300; 97116; C1713; J0690; J1100; J1580; J1885; J2250; J2405; J3010

== ENCOUNTER → 2023-02-10 | Outpatient (CLI) | payer OTHER ==
[~2023-02-10] MED LIST changes: -BUPIVACAINE HCL 0.5% 30 ML VIAL As Ordered ONE; -GENTAMICIN SULF 80MG/2ML VIAL As Ordered ONE; -LIDOCAINE 1% MDV 20ML VIAL SQ PRN; -LIDOCAINE 2% MDV 20ML VIAL As Ordered ONE; -LR 1,000 ML IV ONE; -NEOSPORIN GU IRRIG 20 ML VIAL As Ordered ONE; -ceFAZolin SOD 2 GM in IV 1 EA IV ONE; -dexameTHASONE 4 MG/ML 1ML VIAL (J1100 PER 1MG) As Ordered ONE
[2023-02-10 12:43] LABS: BASO # 0.1 10^3/uL (0.0-0.2); BASO % 0.6 % (0.0-1.0); EOS # 0.1 10^3/uL (0.0-0.5); EOS % 1.6 % (0.0-3.0); HEMATOCRIT 42.6 % (36.0-47.0); HEMOGLOBIN 14.1 g/dl (12.0-15.5); LYMPH # 2.7 10^3/uL (1.5-5.0); LYMPH % 33.6 % (24.0-44.0); MEAN CORPUSCULAR HEMOGLOBIN 30.9 pg (27.0-33.0); MEAN CORPUSCULAR HGB CONC 33.1 g/dl (32.0-36.5); MEAN CORPUSCULAR VOLUME 93.2 fl (80.0-96.0); MONO # 0.8 10^3/uL (0.0-0.8); MONO % 9.5 % (2.0-8.0); NEUTROPHILS # 4.3 10^3/uL (1.5-8.5); NEUTROPHILS % 54.2 % (36.0-66.0); PLATELET COUNT, AUTOMATED 290 10^3/uL (150-450); RED BLOOD COUNT 4.57 10^6/uL (4.00-5.40); WHITE BLOOD COUNT 7.9 10^3/uL (4.0-10.0)
[2023-02-10 13:12] LABS: BLOOD UREA NITROGEN 10 MG/DL (9-23); CALCIUM LEVEL 9.3 MG/DL (8.5-10.1); CARBON DIOXIDE LEVEL 28 MMOL/L (20-31); CHLORIDE LEVEL 105 MMOL/L (98-107); CREATININE FOR GFR 0.57 MG/DL (0.55-1.30); GLOMERULAR FILTRATION RATE > 60.0 (>60); GLUCOSE, FASTING 82 MG/DL (60-100); POTASSIUM SERUM 4.6 MMOL/L (3.5-5.1); SODIUM LEVEL 137 MMOL/L (136-145)
== END ==
LOC: M LAB 12:08
PROVIDERS: ATTEND Podiatrist
DX: M21.622 Bunionette of left foot (principal); M79.672 Pain in left foot

== ENCOUNTER → 2023-02-14 | Outpatient (CLI) | payer OTHER | LOC: M LABSMTC 11:42 | PROVIDERS: ATTEND Anesthesiology | DX: Z11.52 Encounter for screening for COVID-19 (principal) ==

== ENCOUNTER 2023-02-18 07:19 | Day surgery (SDC) | payer OTHER ==
[~2023-02-18] VITALS: Ht 167.6 cm; Wt 100.7 kg
[~2023-02-18 07:19] MED LIST changes: +ceFAZolin SOD 2 GM in IV 1 EA IV ONE
[2023-02-18] MEDS ORDERED: ONDANSETRON 4MG 2ML VIAL As Ordered ONE (08:34)
[2023-02-18] MEDS ORDERED: LIDOCAINE 2% 100MG/5ML SDV (FOR ANES.) As Ordered ONE (08:34)
[2023-02-18] MEDS ORDERED: propofoL 200 MG/20 ML VIAL As Ordered ONE ×2 (08:34→12:00)
[2023-02-18] MEDS ORDERED: MIDAZOLAM INJ 2MG/2ML VIAL As Ordered ONE (08:35)
[2023-02-18] MEDS ORDERED: fentaNYL 100 MCG/2 ML INJECTION As Ordered ONE (08:35)
[2023-02-18] MEDS ORDERED: LIDOCAINE 2% MDV 20ML VIAL As Ordered ONE (08:45)
[2023-02-18] MEDS ORDERED: GENTAMICIN SULF 80MG/2ML VIAL As Ordered ONE (08:45)
[2023-02-18] MEDS ORDERED: BUPIVACAINE HCL 0.5% 30ML VIAL As Ordered ONE (08:46)
[2023-02-18 14:00] VITALS: BP 111/57
== END 2023-02-18 14:43 | disposition home or self-care (01) ==
LOC: M SDC 07:19
PROVIDERS: ATTEND Podiatrist
DX: M21.622 Bunionette of left foot (principal); F32.A Depression, unspecified; F41.9 Anxiety disorder, unspecified; F17.200 Nicotine dependence, unspecified, uncomplicated
CPT/HCPCS: 28308; 73630; 88300; C1713; J0690; J1100; J1580; J2250; J2405; J3010

== ENCOUNTER → 2023-08-09 | Outpatient (CLI) | payer OTHER ==
[~2023-08-09] MED LIST changes: -ceFAZolin SOD 2 GM in IV 1 EA IV ONE
== END ==
LOC: M WHC 12:59
PROVIDERS: ATTEND Physician Assistant
DX: N64.4 Mastodynia (principal)

== ENCOUNTER → 2024-02-08 | Outpatient (CLI) | payer OTHER | LOC: M WHC 09:05 | PROVIDERS: ATTEND Physician Assistant | DX: R92.8 Other abnormal and inconclusive findings on diagnostic imaging of breast (principal) ==

== ENCOUNTER → 2024-04-06 | Outpatient (CLI) | payer OTHER ==
[2024-04-06 14:08] LABS: BASO % 0.5 % (0.0-1.0); EOS # 0.2 10^3/uL (0.0-0.5); EOS % 2.9 % (0.0-3.0); HEMATOCRIT 44.3 % (36.0-47.0); HEMOGLOBIN 14.4 g/dl (12.0-15.5); LYMPH # 2.5 10^3/uL (1.5-5.0); LYMPH % 33.8 % (24.0-44.0); MEAN CORPUSCULAR HEMOGLOBIN 29.9 pg (27.0-33.0); MEAN CORPUSCULAR HGB CONC 32.5 g/dl (32.0-36.5); MEAN CORPUSCULAR VOLUME 91.9 fl (80.0-96.0); MONO # 0.6 10^3/uL (0.0-0.8); MONO % 8.3 % (2.0-8.0); NEUTROPHILS # 4.1 10^3/uL (1.5-8.5); NEUTROPHILS % 54.2 % (36.0-66.0); PLATELET COUNT, AUTOMATED 307 10^3/uL (150-450); RED BLOOD COUNT 4.82 10^6/uL (4.00-5.40); WHITE BLOOD COUNT 7.5 10^3/uL (4.0-10.0)
[2024-04-06 14:26] LABS: HEMOGLOBIN A1c 5.2 % (4.0-6.0)
[2024-04-06 14:32] LABS: ALBUMIN 4.1 G/DL (3.2-5.2); ALKALINE PHOSPHATASE 105 U/L (46-116); ALT/SGPT 30 U/L (7.0-40); AST/SGOT 25 U/L (<34); BILIRUBIN,TOTAL 0.7 MG/DL (0.3-1.2); BLOOD UREA NITROGEN 14 MG/DL (9-23); CALCIUM LEVEL 9.5 MG/DL (8.5-10.1); CARBON DIOXIDE LEVEL 27 MMOL/L (20-31); CHLORIDE LEVEL 106 MMOL/L (98-107); CHOLESTEROL LEVEL 225 MG/DL (<200); CHOLESTEROL RISK RATIO 2.94 (<5); CREATININE FOR GFR 0.61 MG/DL (0.55-1.30); GLOMERULAR FILTRATION RATE > 60.0 (>60); GLUCOSE, FASTING 72 MG/DL (60-100); HDL CHOLESTEROL 76.3 MG/DL (>40); LDL CHOLESTEROL 137.5 MG/DL (<100); NON-HDL-C 148.7 MG/DL; POTASSIUM SERUM 4.6 MMOL/L (3.5-5.1); SODIUM LEVEL 139 MMOL/L (136-145); TOTAL PROTEIN 7.3 G/DL (5.7-8.2); TRIGLYCERIDES LEVEL 56 MG/DL (<150)
[2024-04-06 14:33] LABS: TOTAL 25(OH) VITAMIN D 29.6 NG/ML (20.0-100.0)
[2024-04-06 14:34] LABS: THYROID STIMULATING HORMONE 1.127 uIU/ML (0.55-4.78)
[2024-04-06 14:47] LABS: HCG, SERUM QUALITATIVE NEGATIVE (NEGATIVE)
== END ==
LOC: M RAD 11:03
PROVIDERS: ATTEND Nurse Practitioner Family
DX: R06.83 Snoring (principal); E66.9 Obesity, unspecified; R53.83 Other fatigue; E55.9 Vitamin D deficiency, unspecified; Z11.9 Encounter for screening for infectious and parasitic diseases, unspecified; N92.6 Irregular menstruation, unspecified

== ENCOUNTER 2024-04-15 17:04 | Emergency (ER) | payer OTHER ==
[~2024-04-15] VITALS: Ht 167.6 cm; Wt 107.8 kg
[2024-04-15 22:40] VITALS: BP 133/79; TEMP 97.9; O2SAT 100
== END 2024-04-15 22:51 | disposition home or self-care (01) ==
LOC: M ED 17:04
DX: S99.912A Unspecified injury of left ankle, initial encounter (principal); X50.1XXA Overexertion from prolonged static or awkward postures, initial encounter; Y92.9 Unspecified place or not applicable; Y93.9 Activity, unspecified; Y99.9 Unspecified external cause status

== ENCOUNTER → 2024-04-21 | Outpatient (CLI) | payer OTHER ==
[2024-04-21 13:25] LABS: HEMATOCRIT 43.4 % (36.0-47.0); HEMOGLOBIN 14.4 g/dl (12.0-15.5); MEAN CORPUSCULAR HEMOGLOBIN 30.3 pg (27.0-33.0); MEAN CORPUSCULAR HGB CONC 33.2 g/dl (32.0-36.5); MEAN CORPUSCULAR VOLUME 91.4 fl (80.0-96.0); PLATELET COUNT, AUTOMATED 299 10^3/uL (150-450); RED BLOOD COUNT 4.75 10^6/uL (4.00-5.40); WHITE BLOOD COUNT 7.5 10^3/uL (4.0-10.0)
[2024-04-21 13:37] LABS: INR 0.98; PARTIAL THROMBOPLASTIN TIME 28.1 SECONDS (24.8-34.2); PROTHROMBIN TIME 12.7 SECONDS (12.5-14.5)
[2024-04-21 13:59] LABS: THYROID STIMULATING HORMONE 0.772 uIU/ML (0.55-4.78)
[2024-04-21 14:04] LABS: PROLACTIN 6.82 NG/ML
== END ==
LOC: M LAB 12:43
PROVIDERS: ATTEND Physician Assistant
DX: N93.9 Abnormal uterine and vaginal bleeding, unspecified (principal)

== ENCOUNTER → 2024-05-02 | Outpatient (CLI) | payer OTHER | LOC: M RAD 15:53 | PROVIDERS: ATTEND Physician Assistant | DX: N93.9 Abnormal uterine and vaginal bleeding, unspecified (principal) ==

== ENCOUNTER → 2024-05-12 | Outpatient (CLI) | payer OTHER | LOC: M RAD 14:27 | PROVIDERS: ATTEND Nurse Practitioner Family | DX: M25.572 Pain in left ankle and joints of left foot (principal) ==

== ENCOUNTER → 2024-07-31 | Outpatient (REF) | payer OTHER | LOC: M LAB REF 16:12 | PROVIDERS: ATTEND Nurse Practitioner Family | DX: J02.9 Acute pharyngitis, unspecified (principal) ==

== ENCOUNTER → 2024-08-20 | Outpatient (REF) | payer OTHER ==
[2024-08-20 12:50] LABS: BLOOD UREA NITROGEN 10 MG/DL (9-23); CALCIUM LEVEL 9.3 MG/DL (8.5-10.1); CARBON DIOXIDE LEVEL 25 MMOL/L (20-31); CHLORIDE LEVEL 105 MMOL/L (98-107); CHOLESTEROL LEVEL 200 MG/DL (<200); CHOLESTEROL RISK RATIO 3.07 (<5); CREATININE FOR GFR 0.67 MG/DL (0.55-1.30); GLOMERULAR FILTRATION RATE > 60.0 (>60); GLUCOSE, FASTING 107 MG/DL (60-100); LDL CHOLESTEROL 121.4 MG/DL (<100); POTASSIUM SERUM 3.6 MMOL/L (3.5-5.1); SODIUM LEVEL 136 MMOL/L (136-145); TRIGLYCERIDES LEVEL 68 MG/DL (<150)
== END ==
LOC: M LAB REF 11:50
PROVIDERS: ATTEND Nurse Practitioner Family
DX: R60.0 Localized edema (principal); E78.5 Hyperlipidemia, unspecified

== ENCOUNTER → 2024-10-30 | Outpatient (CLI) | payer OTHER | LOC: M SLEEP HO 08:48 | PROVIDERS: ATTEND Nurse Practitioner Adult Health | DX: R06.83 Snoring (principal) ==

== ENCOUNTER → 2024-12-27 | Outpatient (REF) | payer OTHER ==
[2024-12-27 18:17] LABS: BASO % 0.4 % (0.0-1.0); EOS # 0.2 10^3/uL (0.0-0.5); EOS % 2.1 % (0.0-3.0); HEMATOCRIT 42.2 % (36.0-47.0); HEMOGLOBIN 14.1 g/dl (12.0-15.5); LYMPH # 2.5 10^3/uL (1.5-5.0); MEAN CORPUSCULAR HEMOGLOBIN 30.3 pg (27.0-33.0); MEAN CORPUSCULAR HGB CONC 33.4 g/dl (32.0-36.5); MEAN CORPUSCULAR VOLUME 90.8 fl (80.0-96.0); MONO # 0.9 10^3/uL (0.0-0.8); MONO % 10.1 % (2.0-8.0); NEUTROPHILS % 58.2 % (36.0-66.0); PLATELET COUNT, AUTOMATED 340 10^3/uL (150-450); RED BLOOD COUNT 4.65 10^6/uL (4.00-5.40); WHITE BLOOD COUNT 8.5 10^3/uL (4.0-10.0)
== END ==
LOC: M LAB REF 17:29
PROVIDERS: ATTEND Nurse Practitioner Family
DX: K64.4 Residual hemorrhoidal skin tags (principal); N92.6 Irregular menstruation, unspecified

== ENCOUNTER → 2025-03-05 | Outpatient (CLI) | payer OTHER ==
[~2025-03-05] MED LIST changes: +VANC125C13 PO; -VANC125C3 PO
[2025-03-05 16:19] LABS: PROLACTIN 9.98 NG/ML; THYROID STIMULATING HORMONE 1.483 uIU/ML (0.55-4.78)
[2025-03-05 16:20] LABS: FREE T4 1.03 NG/DL (0.89-1.76)
[2025-03-07 09:27] LABS: DEHYDROEPIANDROSTERONE SULFATE 195 mcg/dL (19-237)
== END ==
LOC: M PLALAB 12:06
PROVIDERS: ATTEND Nurse Practitioner Family
DX: N92.6 Irregular menstruation, unspecified (principal)

== ENCOUNTER → 2025-03-07 | Outpatient (CLI) | payer OTHER ==
[~2025-03-07] MED LIST changes: +METHACHOLINE KIT (6 VIAL.NEB PREMIX) INH ONE
== END ==
LOC: M CARPUL 15:02
PROVIDERS: ATTEND Nurse Practitioner Adult Health
DX: R06.02 Shortness of breath (principal)
CPT/HCPCS: 94070; 95070; J7674

== ENCOUNTER → 2025-04-11 | Outpatient (CLI) | payer OTHER ==
[~2025-04-11] MED LIST changes: -METHACHOLINE KIT (6 VIAL.NEB PREMIX) INH ONE
== END ==
LOC: M RAD 10:19
PROVIDERS: ATTEND Nurse Practitioner Family
DX: N92.5 Other specified irregular menstruation (principal); N93.9 Abnormal uterine and vaginal bleeding, unspecified

== ENCOUNTER → 2025-07-15 | Outpatient (CLI) | payer OTHER | LOC: M RAD 15:38 | PROVIDERS: ATTEND Nurse Practitioner Family | DX: M54.42 Lumbago with sciatica, left side (principal); M54.41 Lumbago with sciatica, right side; G89.29 Other chronic pain ==

== ENCOUNTER → 2025-09-23 | Outpatient (REF) | payer MEDICARE, OTHER ==
[2025-09-23 16:58] LABS: ALT/SGPT 17 U/L (7.0-40); AST/SGOT 19 U/L (<34); CALCIUM LEVEL 9.7 MG/DL (8.5-10.1); CARBON DIOXIDE LEVEL 26 MMOL/L (20-31); CHLORIDE LEVEL 104 MMOL/L (98-107); CHOLESTEROL LEVEL 209 MG/DL (<200); CHOLESTEROL RISK RATIO 3.40 (<5); CREATININE FOR GFR 0.64 MG/DL (0.55-1.30); GLOMERULAR FILTRATION RATE > 90.0 (>60); LDL CHOLESTEROL 123.0 MG/DL (<100); NON-HDL-C 147.6 MG/DL; POTASSIUM SERUM 4.4 MMOL/L (3.5-5.1); SODIUM LEVEL 141 MMOL/L (136-145); TRIGLYCERIDES LEVEL 123 MG/DL (<150)
== END ==
LOC: M LAB REF 16:25
PROVIDERS: ATTEND Nurse Practitioner Family
DX: E66.9 Obesity, unspecified (principal); Z79.899 Other long term (current) drug therapy